=== PATIENT | male | born 1995 | race African-American/Black ===

== ENCOUNTER 2019-12-07 09:04 | Emergency (ER) | payer OTHER, SELFPAY ==
--- NOTE | ~2019-12-07 | XR_ITS ---
EXAMINATION: XR hand RT min 3V INDICATION: Right hand pain, initial encounter TECHNIQUE: Four views of the right hand are obtained. COMPARISON: None available FINDINGS: There is an acute, traumatic, closed fracture involving the distal shaft of the fifth metac arpal. There are approximately 35 degrees of lateral angulation at the fracture site. Soft tissue swe lling surrounds the fracture. The joint spaces are normal. No additional acute osseous findings are e vident. IMPRESSION: 1. Acute distal shaft fracture of the fifth metacarpal. Reviewed, dictated and finalized at location A.
[2019-12-07 09:05] VITALS: BP 109/59; PULSE 71; RESP 16; TEMP 37.1; O2SAT 99
--- NOTE | 2019-12-07 11:35 | ED.GENADULT ---
HPI - General Adult General Chief complaint: Extremity Injury, Upper Stated complaint: NEED PICTURE OF MY HAND Time Seen by Provider: 12/07/19 10:14 Source: patient Mode of arrival: ambulatory Limitations: no limitations History of Present Illness HPI narrative: Patient is a 24-year-old male who presents with right hand injury that occurred this morning dropped a washing machine onto the hand and since had pain over the right mid fifth metacarpal patient denies other injuries or complaints on arrival is in no distress has not taken anything for his pain denies similar injury in the past Related Data Allergies Allergy/AdvReac Type Severity Reaction Status Date / Time No Known Allergies Allergy Verified 12/07/19 09:08 Review of Systems Review of Systems: All systems reviewed & are unremarkable except as noted in HPI and below PMFSH Social History Social History (Updated 12/07/19 @ 11:42 by Joe Mora PA-C) Smoking status: Current every day smoker Exam Narrative: Exam Narrative: GENERAL: Well-appearing, well-nourished, and in no acute distress. HEAD: Normocephalic, atraumatic. EYES: PERRLA and EOMI. ENT: Nares clear, no rhinorrhea or epistaxis. Mucous membranes moist. CHEST: Clear to auscultation. No respiratory distress. No wheezes rales or rhonchi HEART: Regular rate and rhythm. No murmur heard. Normal peripheral pulses. EXTREMITIES: Normal range of motion. No edema. Swelling tenderness over the mid right fifth metacarpal SKIN: Warm, dry, no rash. NEURO: No focal deficits. Alert and oriented x3. Neurovascularly intact PSYCH: Normal mood and affect. Course Course Emergency Course: Patient in the room was splinted resting comfortably in the room in no distress aware of recommendations and follow-up with hand surgeon at [facility] Consultations Consultation #1: Spoke with hand surgery at [facility] who has the patient set up to follow in clinic this week Date: 12/07/19 Time: 11:48 Vital Signs Vital signs: Vital Signs Temperature 98.7 F 12/07/19 09:05 Pulse Rate 71 12/07/19 09:05 Respiratory Rate 16 12/07/19 09:05 Blood Pressure 109/59 L 12/07/19 09:05 Pulse Oximetry 99 12/07/19 09:05 Temperature 98.7 F 12/07/19 09:05 Pulse Rate 71 12/07/19 09:05 Respiratory Rate 16 12/07/19 09:05 Blood Pressure 109/59 L 12/07/19 09:05 Pulse Oximetry 99 12/07/19 09:05 Procedures Orthopedic Splinting/Casting Injury #1: Splinting/Casting Date: 12/07/19 Splinting/Casting Time: 11:49 Side: right Upper Extremity Injury Location: hand Splint: customized in ED OCL: ulnar gutter Pre-Procedure Neuro Vascular Exam: normal Post-Procedure Neuro Vascular Exam: normal Additional Comments: Sling Medical Decision Making MDM Narrative Medical decision making narrative: Patients injury or pain is consistent with musculoskeletal etiology. No signs of neurological or vascular compromise on exam. Compartments and tisues are soft without signs of compartment syndrome. Pain is felt appropriate for further evaluation on an outpatient basis. Vital Signs Vital Signs: Vital Signs Temperature 98.7 F 12/07/19 09:05 Pulse Rate 71 12/07/19 09:05 Respiratory Rate 16 12/07/19 09:05 Blood Pressure 109/59 L 12/07/19 09:05 Pulse Oximetry 99 12/07/19 09:05 Temperature 98.7 F 12/07/19 09:05 Pulse Rate 71 12/07/19 09:05 Respiratory Rate 16 12/07/19 09:05 Blood Pressure 109/59 L 12/07/19 09:05 Pulse Oximetry 99 12/07/19 09:05 Discharge Plan Discharge Clinical Impression: Hand fracture, right Patient Disposition: Home, Self-Care Condition: Stable Instructions: Antibiotic Form, Hand Fracture (ED), How to Use a Sling (ED) Additional Instructions: Follow-up with hand surgery at [facility] first thing tomorrow you are to call [phone] you are to follow with plastic surgery hand [facility]
== END 2019-12-07 12:02 | disposition home or self-care (01) ==
PROVIDERS: Emergency Provider Emergency Medicine
DX: S62.326A Displaced fracture of shaft of fifth metacarpal bone, right hand, initial encounter for closed fracture (principal); F17.200 Nicotine dependence, unspecified, uncomplicated; W20.8XXA Other cause of strike by thrown, projected or falling object, initial encounter
CPT/HCPCS: 29125; 73130; 99284; A4565